=== PATIENT | male | born 1965 | race Hispanic/Latino ===

== ENCOUNTER 2018-03-24 10:58 | Observation (INO) | payer BC ==
[2018-03-24 11:26] LABS: #Eosinphils 0.1 thou/uL (0.0-0.7); #Lymphocytes 1.8 thou/uL (1.20-3.40); #Monocytes 0.4 thou/uL (0.11-0.59); #Neutrophils 3.3 thou/uL (1.40-6.50); %Basophils 0.4 % (0.0-1.0); %Eosinophils 2.2 % (0.0-10.0); %Lymphocytes 31.8 % (21.0-51.0); %Monocytes 6.5 % (0.0-10.0); %Neutrophils 59.2 % (42.0-75.0); Hemoglobin 14.6 g/dL (14.0-18.0); Mean Corpuscular HGB CONC 34.5 g/dL (32.0-36.0); Mean Corpuscular Hemoglobin 29.4 pg (27.0-31.0); Mean Corpuscular Volume 85.2 fL (78.0-98.0); Platelet Count 155 thou/uL (130-400); RBC Distribution Width 12.9 % (11.5-14.5); Red Blood Cell (RBC) Count 4.97 mill/uL (4.70-6.10); White Blood Cell (WBC) Count 5.5 thou/uL (4.8-10.8)
[2018-03-24 11:46] LABS: ALT (SGPT) 151 U/L (8-55); AST (SGOT) 111 U/L (5-34); Albumin 4.1 g/dL (3.5-5.0); Alkaline Phosphatase 122 U/L (40-150); Anion Gap 12 mmol/L (10-20); BUN (Urea Nitrogen) 10 mg/dL (8.4-25.7); CK (CPK) 174 U/L (30-200); Calc. Creatinine Clearance 0 mL/min (70-130); Calcium 9.2 mg/dL (7.8-10.44); Carbon Dioxide 24 mmol/L (22-29); Chloride 105 mmol/L (98-107); Estimated GFR-MDRD 81; Globulin 3.8 g/dL (2.4-3.5); Glucose 289 mg/dL (70-105); Potassium 3.9 mmol/L (3.5-5.1); Protein, Total 7.9 g/dL (6.0-8.3); Sodium 137 mmol/L (136-145)
[2018-03-24 11:49] LABS: CKMB 2.2 ng/mL (0-6.6); Troponin I Less than 0.010 ng/mL (< 0.028)
--- NOTE | 2018-03-24 12:15 | RAD ---
PORTABLE AP CHEST: Date: 03/24/18 HISTORY: Chest pain. COMPARISON: 09/10/12. FINDINGS: Cardiac silhouette and pulmonary vasculature are within normal limits. Inferior aspect left lateral c ostophrenic angle is excluded from view, but the lungs are otherwise clear. Osseous structures are in tact. IMPRESSION: No acute cardiopulmonary process. POS: [facility]
--- NOTE | 2018-03-24 14:47 | ULT ---
RIGHT UPPER QUADRANT ULTRASOUND: Date: 03/24/18 HISTORY: Elevated liver enzymes. Chest pain for 1 day. FINDINGS: There is increased echogenicity of the liver related to diffuse fatty infiltration. This was also see n on the prior study on 05/31/06. No focal hepatic lesion is seen. A majority of the pancreas is obscured by bowel gas, but the limited visualized portions of the pancr eas, as well as visualized portions of the IVC demonstrate a normal sonographic appearance. The gallbladder is normal in appearance without gallbladder calculi visualized. The common duct is no rmal in caliber measuring 0.4 cm in diameter. Visualized portions of the IVC and right kidney demonstrate a normal sonographic appearance. The righ t kidney measures 11.3 cm in length. IMPRESSION: 1. Fatty infiltration of the liver. 2. No gallbladder calculi are seen, and the common duct is normal in caliber. POS: [facility]
--- NOTE | 2018-03-24 15:06 | HP ---
PRIMARY CARE PHYSICIAN: Dr. Tawanna Sorto at [facility]. REASON FOR ADMISSION: Chest pain and dizziness. HISTORY OF PRESENT ILLNESS: A 52-year-old male who has underlying history of diabetes, dysl ipidemia, and hypertension, who presented to emergency room for evaluation of chest discomfort and di zziness, which was started around 12:00 noon yesterday which was constant, 3/10 in intensity. The pa tient was also experiencing radiation of discomfort in left upper extremity. He was feeling nausea, but no vomiting. He was feeling dizziness and mild shortness of breath. He denies any lower extremi ty edema or calf tenderness. He denies any relation of chest pain with food, respiration or activity . He denies any abdominal pain or right upper quadrant pain. He denies any fever or chills. He den ies any orthopnea, PND or leg swelling. This patient's symptoms were persistent. He was ignoring his symptoms because he was thinking maybe gas, but this morning when he was going to work, he had similar pains and he was not able to tolerate and that is why he stopped at [employer] [facility] and from there he was brought to emergency room for evalu ation. In the emergency room, this patient had routine blood test, which showed abnormal LFT and that is why ultrasound right upper quadrant was done. His chest x-ray was normal. The patient had a stress dia t done in 2012, which was normal. The patient denies any UTI symptoms. He denies any constipation, diarrhea, melena, hematochezia. He denies any cough, pleurisy, fever or flu-like symptoms. He reports that his chest pain is getting worse when he lies down on his stomach as well as whenever he tried to sit. Whenever he takes a deep breath, he does not have any more pain. He feels more com fortable in lying down position. REVIEW OF SYSTEMS: Please see my HPI for pertinent positive and negative. All other review of syste m reviewed and negative except as mentioned in the HPI. Constitutional: Weight loss or gain, ability to conduct usual activities. Skin: Rash, itching. Eyes: Double vision, pain. ENT/Mouth: Nose bleeding, neck stiffness, pain, tenderness. Cardiovascular: Palpitations, dyspnea on exertion, orthopnea. Respiratory: Shortness of breath, wheezing, cough, hemoptysis, fever or night sweats. Gastrointestinal: Poor appetite, abdominal pain, heartburn, nausea, vomiting, constipation, or diarrhea. Genitourinary: Urgency, frequency, dysuria, nocturia. Musculoskeletal: Pain, swelling. Neurologic/Psychiatric: Anxiety, depression. Allergy/Immunologic: Skin rash, bleeding tendency. PAST MEDICAL HISTORY: Hypertension, diabetes type 2, dyslipidemia. ALLERGIES: No known drug allergy. CURRENT HOME MEDICATIONS: The patient is taking Lantus 50 units in the morning and 10 units at lunch this time. The patient did not bring his medication, so unable to verify other medication at this p oint. Lipitor 10 mg p.o. at bedtime, glipizide 5 mg p.o. daily, metformin 1000 mg p.o. twice daily. PAST SURGICAL HISTORY: Bilateral knee surgery, ACL repair on the left side and right knee patella fr acture repair, left ankle surgery, open reduction and internal fixation for left lateral tibial fract ure repair. FAMILY HISTORY: Mother from heart attack, hypertension, diabetes runs among several family memb ers. SOCIAL HISTORY: The patient is . He drinks alcohol socially. He never smoked. He denies an y other illicit drug abuse. He has 3 children. EMERGENCY ROOM COURSE: Reviewed. PHYSICAL EXAMINATION: VITAL SIGNS: On arrival, blood pressure 149/102, pulse 119, respiratory rate 18, temperature 97.9, s aturation 96% on room air, weight 96.1 kilograms. GENERAL: The patient is currently alert, awake, no obvious acute distress. HEAD: Normocephalic, atraumatic. EYES: Pupils round, reactive to light. Extraocular muscle intact. No icterus. ENT: Oropharynx within normal limits. Moist mucous membranes, no oral lesion, no pharyngeal erythem a, no exudate. NECK: Supple, no JVD, no thyromegaly, no carotid bruit, no jugular venous distention. LUNGS: Clear to auscultation without any rhonchi or rales. CARDIAC: S1, S2 regular without any murmur. ABDOMEN: Soft, bowel sounds present, no right upper quadrant tenderness, no Thomas sign, no epigastr ic discomfort, no suprapubic discomfort. Bowel sounds present. No organomegaly, no mass, no periton eal sign. BACK: Unremarkable, no CVA tenderness. EXTREMITIES: Upper extremity: Passive movement of all joints are normal. Lower extremities: No ed femi, no calf tenderness. Good distal pulsation. SKIN: No skin rash. HEMATOLOGICAL: No lymphadenopathy. PSYCHIATRIC: Normal affect. NEUROLOGIC: Nonfocal examination. The patient moves all 4 limbs. Plantar bilateral flexor. Speech normal. SIGNIFICANT LABORATORY DATA: EKG showing initially sinus tachycardia, subsequently telemetry showing sinus rhythm. Chest x-ray based on my review, no acute cardiopulmonary process. Abdominal ultrasou nd done, report is pending. CBC: WBC 5.5, hemoglobin 14.6, platelet 155. BMP: Sodium 137, potassi um 3.9, chloride 105, carbon dioxide 24, anion gap 12, BUN 10, creatinine 0.97, glucose 289, calcium 9.2. LFT: AST 111, ALT 151, alkaline phosphatase is 122, albumin 4.1, CK 174, CK-MB 2.2, troponin I less than 0.010. ASSESSMENT AND PLAN: 1. Chest pain and dizziness. Currently, cardiac enzyme is negative. The patient's symptoms started yesterday around noon time, so probability of having acute coronary syndrome is unlikely and ruled o ut, but underlying ischemia needs to be excluded because of his underlying risk factor. His probabil ity of coronary artery disease is mild to moderate. At this point, we will keep this patient in hosp ital for observation. We will do serial cardiac enzymes x3 to rule out acute coronary syndrome. Leda nwhile, we will continue with aspirin 325 mg p.o. daily. We will check lipid profile for risk strati fication. We did a right upper quadrant ultrasound to rule out any gallbladder pathology. We will t reat him with Pepcid 20 mg p.o. b.i.d. and tomorrow morning, we will keep him n.p.o. and perform exer cise Cardiolite stress test for diagnostic reason. 2. Abnormal liver function tests. Etiology uncertain. We will check hepatitis profile tomorrow. R ight upper quadrant ultrasound is done. We will repeat LFT tomorrow as well. 3. Diabetes type 2, not well controlled. We will check hemoglobin A1c tomorrow. We will continue t he insulin as per sliding scale per protocol. Once we verify the patient's home medication, then we will continue with the Lantus as well. Diabetic diet will be given to the patient. 4. Hypertension. We will monitor on telemetry floor and will start lisinopril 5 mg p.o. daily for r enal protection. 5. Dyslipidemia. We will continue with Lipitor 10 mg p.o. at bedtime. 6. Deep venous thrombosis prophylaxis not needed because we are expecting discharge in 24 hours. 7. Gastrointestinal prophylaxis, Pepcid 20 mg p.o. b.i.d. 8. Code status: The patient is FULL CODE. The patient's is surrogate decision maker. Disposition plan based on clinical course. We are expecting patient's stay in hospital more than 2 m idnights. Plan of care discussed with the patient in detail.
[2018-03-24 16:51] LABS: Troponin I Less than 0.010 ng/mL (< 0.028)
[2018-03-24 17:43] VITALS: BMI 31.5
[2018-03-24] MEDS ORDERED: Ondansetron HCl/PF 4 MG/2 ML Vial IVP PRN ×2 (17:47→17:51)
[2018-03-24] MEDS ORDERED: Ondansetron ODT 4 MG TAB SL PRN (17:47)
[2018-03-24] MEDS ORDERED: Acetaminophen 325 MG TAB PO PRN ×2 (17:47→17:51)
[2018-03-24] MEDS ORDERED: Senokot 8.6 MG TAB PO PRN (17:51)
[2018-03-24] MEDS ORDERED: Dextrose 50% Abboject 50 ML SYRINGE SLOW IVP PRN (17:51)
[2018-03-24] MEDS ORDERED: Loratadine 10 MG TAB PO PRN (17:51)
[2018-03-24] MEDS ORDERED: Ondansetron ODT 4 MG TAB PO PRN (17:51)
[2018-03-24] MEDS ORDERED: Milk Of Magnesia 30 ML UDCUP PO PRN (17:51)
[2018-03-24] MEDS ORDERED: Loperamide HCl 2 MG CAP PO PRN (17:51)
[2018-03-24] MEDS ORDERED: Mag-Al 1200 mg/1200 mg/30 ML UDCUP PO PRN (17:51)
[2018-03-24] MEDS ORDERED: Artificial Tears 18 DROP/0.9 ML EA EYE PRN (17:51)
[2018-03-24] MEDS ORDERED: hydrALAZINE 20 MG/ML VIAL SLOW IVP PRN (17:51)
[2018-03-24] MEDS ORDERED: Dextrose 5% in Water 1,000 ML IV PRN (17:51)
[2018-03-24] MEDS ORDERED: Diabetic Tussin 200 MG/10 ML UDCUP PO PRN (17:51)
[2018-03-24] MEDS ORDERED: Zolpidem Tartrate 5 MG TAB PO PRN (17:51)
[2018-03-24] MEDS ORDERED: Chloraseptic Spray 180 ml Bottle PO PRN (17:51)
[2018-03-24] MEDS ORDERED: HumaLOG 300 UNITS/3 ML VIAL SC PRN ×2 (17:51)
[2018-03-24] MEDS ORDERED: HYDROcodone/Acetaminophen 5/325 mg Tablet PO PRN (17:51)
[2018-03-24] MEDS ORDERED: Sodium Chloride 0.65% Nasal 44 ML BOT EA NARE PRN (17:51)
[2018-03-24] MEDS ORDERED: Eucerin (Mineral Oil/Petrolatum,White) 30 gm Jar TOP PRN (17:51)
[2018-03-24] MEDS ORDERED: Nitroglycerin 0.4 MG TAB (25 Tab Bottle) SL PRN (17:51)
[2018-03-24 18:50] LABS: Troponin I Less than 0.010 ng/mL (< 0.028)
[2018-03-24] MEDS ORDERED: Atorvastatin Calcium 10 MG TAB PO SCH (21:00)
[2018-03-24] MEDS: Famotidine 20 MG TAB PO SCH (21:52)
[2018-03-25 04:34] LABS: #Eosinphils 0.2 thou/uL (0.0-0.7); #Lymphocytes 2.3 thou/uL (1.20-3.40); #Monocytes 0.5 thou/uL (0.11-0.59); %Basophils 0.5 % (0.0-1.0); %Eosinophils 3.1 % (0.0-10.0); %Lymphocytes 38.5 % (21.0-51.0); %Monocytes 7.9 % (0.0-10.0); Hemoglobin 13.4 g/dL (14.0-18.0); Mean Corpuscular HGB CONC 35.5 g/dL (32.0-36.0); Mean Corpuscular Hemoglobin 30.6 pg (27.0-31.0); Mean Corpuscular Volume 86.3 fL (78.0-98.0); Mean Platelet Volume 8.3 fL (7.4-10.4); Platelet Count 148 thou/uL (130-400); Red Blood Cell (RBC) Count 4.39 mill/uL (4.70-6.10)
[2018-03-25 04:42] LABS: Hemoglobin A1c 10.2 % (4.0-6.0)
[2018-03-25 05:02] LABS: ALT (SGPT) 126 U/L (8-55); AST (SGOT) 77 U/L (5-34); Albumin 3.6 g/dL (3.5-5.0); Alkaline Phosphatase 108 U/L (40-150); Anion Gap 12 mmol/L (10-20); BUN (Urea Nitrogen) 10 mg/dL (8.4-25.7); Bilirubin, Total 0.7 mg/dL (0.2-1.2); Calc. Creatinine Clearance 150 mL/min (70-130); Calcium 8.8 mg/dL (7.8-10.44); Carbon Dioxide 22 mmol/L (22-29); Cardiac Risk 5.6 (Less than 4.5); Chloride 107 mmol/L (98-107); Cholesterol 192 mg/dl (< 200 Desired); Estimated GFR-MDRD Greater than 90; Globulin 3.3 g/dL (2.4-3.5); Glucose 205 mg/dL (70-105); HDL Cholesterol 34 mg/dL (>60 Neg Risk); LDL Cholesterol, Calculated 120 mg/dL; Potassium 3.5 mmol/L (3.5-5.1); Protein, Total 6.9 g/dL (6.0-8.3); Sodium 137 mmol/L (136-145); Triglycerides 188 mg/dL (Less than 150)
[2018-03-25 05:22] LABS: HBCM Index 0.26 S/CO (0-0.79); HBSAg Index 0.27 S/CO (0-0.99); Hep A IgM AB Non-Reactive (NonReactive); Hep A IgM S/CO 0.32 S/CO (0-0.79); Hep B Surf Ag Non-Reactive S/CO (NonReactive); Hep C IgG Ab Non-Reactive (NonReactive); Hep C Index 0.06 S/CO (0-0.79); Hepatitis B Core IGM Abs Non-Reactive (NonReactive)
[2018-03-25] MEDS: Famotidine 20 MG TAB PO SCH (08:57)
[2018-03-25] MEDS ORDERED: Lisinopril 5 MG TAB PO SCH (09:00)
[2018-03-25] MEDS ORDERED: Insulin Glargine 50 UNITS in Pre-Filled Syringe SC SCH (09:00)
[2018-03-25] MEDS ORDERED: Atorvastatin Calcium 10 MG TAB PO SCH (09:00)
[2018-03-25] MEDS ORDERED: Aspirin 325 MG TAB PO SCH (09:00)
[2018-03-25] MEDS ORDERED: glipiZIDE 10 MG TAB PO SCH (09:00)
--- NOTE | 2018-03-25 10:19 | DIS ---
DATE OF ADMISSION: 03/24/2018 DATE OF DISCHARGE: 03/25/2018 PRIMARY CARE PHYSICIAN: Tawanna Sorto M.D. DISCHARGE DISPOSITION: Home. PRIMARY DISCHARGE DIAGNOSES: Chest pain and dizziness, ruled out acute coronary syndrome. Abnormal liver function test, likely due to fatty liver. SECONDARY DISCHARGE DIAGNOSES: Obesity with BMI 31, hypertension, dyslipidemia , diabetes type 2. PRIMARY PROCEDURES/OPERATIONS: None. RADIOLOGICAL INVESTIGATION: Chest x-ray normal. Abdominal ultrasound showed fatty liver. Stress test will be done and result is pending. SIGNIFICANT LABORATORY DATA: WBC 6.0, hemoglobin 13.4, platelet 148. Sodium 137, potassium 3.5, BUN 10, creatinine 0.79, calcium 8.8, AST 77, ALT 126, alkaline phosphatase is 108, albumin 3.3. LDL 120. Cardiac enzymes negative. Hemoglobin A1c 10.2. Hepatitis profile negative. DISCHARGE MEDICATIONS: Lipitor 10 mg p.o. daily, glipizide 10 mg p.o. b.i.d., Humalog insulin as per sliding scale, Tresiba 50 units subcu daily, aspirin 81 mg p.o. daily, lisinopril 5 mg p.o. daily. CONTRAINDICATIONS: None. CODE STATUS: FULL CODE. INPATIENT CONSULTANTS: None. ALLERGIES: No known drug allergy. DISCHARGE PLAN: Post hospital, the patient will follow up with primary care physician in 1 week. HOSPITAL COURSE: A 52-year-old male with above-mentioned medical problem who was admitted by me. Please see my HPI for further details. The patient was having chest pain and dizziness. On admission, his electrocardiogram was normal. Chest x-ray was normal. Routine blood tests showed abnormal LFT and that is why we did ultrasound of gallbladder which showed fatty liver. Hepatitis profile came back negative. His diabetes seems like not well controlled. His hemoglobin A1c is 10.2. His LDL is 121. Healthy lifestyle measures discussed with the patient. His abnormal LFT is related with fatty liver. His cardiac enzyme remained negative x3. His telemetry remained unremarkable. He was asymptomatic. Subsequently, we are doing stress test today for diagnostic reason. If stress test is negative, then patient will be discharged home later on today. PHYSICAL EXAMINATION: The patient is seen and examined at bedside today. VITAL SIGNS: Currently, temperature 98.2, pulse 80, respiratory rate 18, saturation 95%, blood pressure 140/92, weight 213 pounds. GENERAL: The patient is currently alert, awake, no obvious acute distress. HEAD: Normocephalic, atraumatic. EYES: Pupils round, reactive to light. LUNGS: Clear to auscultation without any rhonchi or rales. CARDIAC: S1, S2 regular without any murmur. ABDOMEN: Soft and benign. EXTREMITIES: No edema. NEUROLOGIC: Nonfocal examination. Overall, patient is medically stable for discharge if stress is negative. STRESS TEST IS NORMAL AND I HAVE DISCUSSED WITH PT ABOUT RESULT MTDD
[2018-03-25 12:07] VITALS: BP 122/79; TEMP 98.1
--- NOTE | 2018-03-25 13:36 | NM ---
MYOCARDIAL PERFUSION EVALUATION: DATE: 03/25/18 INDICATION: Chest pain. RADIOPHARMACEUTICAL: 28.2 mCi technetium-99m sestamibi with stress and 9.2 mCi technetium-99m sestamibi with rest. COMPARISON: Prior exam dated 09/01/12. FINDINGS: No reversible myocardial perfusion defect is evident. Wall motion and wall thickening were normal. LV EF estimated at 55%. IMPRESSION: Normal myocardial perfusion evaluation. No scintigraphic evidence to suggest reversible myocardial is chemia. Estimated LVEF is 55%. No appreciable change seen from the comparison study. POS: [facility]
== END 2018-03-25 15:45 | disposition home or self-care (01) ==
LOC: ERS 10:58 → 2SW 17:20
PROVIDERS: ADMIT Internal Medicine; ATTEND Internal Medicine
DX: R07.9 Chest pain, unspecified (principal); R42 Dizziness and giddiness; E66.9 Obesity, unspecified; I10 Essential (primary) hypertension; E11.9 Type 2 diabetes mellitus without complications; E78.5 Hyperlipidemia, unspecified; Z68.31 Body mass index [BMI] 31.0-31.9, adult; Z79.84 Long term (current) use of oral hypoglycemic drugs; Z79.899 Other long term (current) drug therapy
CPT/HCPCS: 36415; 36416; 71045; 76705; 78452; 80053; 80061; 80074; 82550; 82553; 83036; 84484; 85025; 93005; 93017; 94760; A9500; G0378

== ENCOUNTER 2021-12-25 08:51 | Outpatient (CLI) | payer BC | END 2021-12-25 08:52 | disposition home or self-care (01) | LOC: BICRAD 08:51 | PROVIDERS: ATTEND Nurse Practitioner Community Health | DX: J06.9 Acute upper respiratory infection, unspecified (principal) | CPT/HCPCS: 71046 ==